=== PATIENT | male | born 1960 | race Caucasian/White ===

== ENCOUNTER 2016-07-26 14:43 | Observation (INO) | payer OTHER ==
[~2016-07-26] VITALS: Ht 185.4 cm; Wt 129.8 kg
[2016-07-26 17:12] LABS: HEMOGLOBIN 14.5 gm/dl (14.0-17.5); RED BLOOD COUNT 4.99 M/UL (4.20-5.50); WHITE BLOOD COUNT 8.3 K/UL (4.5-11.0)
[2016-07-26 17:49] LABS: BUN/CREATININE RATIO 13 (0-10)
[2016-07-27] MEDS ORDERED: ASPIRIN EC81 MG PO (00:53)
[2016-07-27] MEDS ORDERED: PLAVIX 75 MG TA75 MG PO (00:53)
[2016-07-27] MEDS ORDERED: VOLTAREN100 GM TOP (00:54)
[2016-07-27] MEDS ORDERED: FENOFIBRATE160 MG PO (00:54)
[2016-07-27] MEDS ORDERED: SYNTHROID150 MCG PO (00:55)
[2016-07-27] MEDS ORDERED: GLUCOTROL 10 MG10 MG PO (00:55)
[2016-07-27] MEDS ORDERED: METFORMIN HCL1000 MG PO (00:55)
[2016-07-27 04:55] LABS: HEMOGLOBIN 14.7 gm/dl (14.0-17.5); RED BLOOD COUNT 5.08 M/UL (4.20-5.50); WHITE BLOOD COUNT 9.9 K/UL (4.5-11.0)
[2016-07-27 05:16] LABS: BUN/CREATININE RATIO 13 (0-10)
[2016-07-27] MEDS ORDERED: METOPROLOL TART25 MG PO (19:41)
[2016-07-27] MEDS ORDERED: IMDUR ER TAB 3030 MG PO (19:42)
== END 2016-07-27 20:16 | disposition home or self-care (01) ==
LOC: ER1 14:43 → ZEROF 18:41 → MED SURG 4 18:41
PROVIDERS: Emergency Medicine; ADMIT Internal Medicine
DX: R07.9 Chest pain, unspecified (principal); I25.10 Atherosclerotic heart disease of native coronary artery without angina pectoris; E11.9 Type 2 diabetes mellitus without complications; I10 Essential (primary) hypertension; E78.5 Hyperlipidemia, unspecified; E66.01 Morbid (severe) obesity due to excess calories; Z79.82 Long term (current) use of aspirin; Z95.1 Presence of aortocoronary bypass graft; Z79.02 Long term (current) use of antithrombotics/antiplatelets; Z79.899 Other long term (current) drug therapy; Z87.891 Personal history of nicotine dependence
CPT/HCPCS: ECHO; 36415; 71020; 78452; 80048; 80053; 80061; 82550; 82553; 82962; 83690; 83874; 83880; 84484; 85025; 85027; 85610; 85730; 93005; 93017; 93306; 96372; 99285; A9502; G0378; J1650; J2785

== ENCOUNTER → 2020-03-20 | Outpatient (CLI) | payer OTHER ==
[~2020-03-20] MED LIST: ASPIRIN EC81 MG PO; CLARITIN10 M2 PO; CRESTOR40 MG PO; CYANOCOBAL1000 MCG/1 IM; ELIQUIS 2.5 MG2.5 MG PO; ELIQUIS5 MG PO; FENOFIBRATE150 MG PO; FENOFIBRATE160 MG PO; GLUCOTROL 10 MG10 MG PO; HYDROCODON-ACE1 EAC2 PO; IMDUR ER TAB 3030 MG PO; ISOSORBIDE MONO30 MG PO; LEVOTHYROXINE50 MC1 PO; LIPITOR40 MG PO; LOPRESSOR 25 MG25 MG PO; METFORMIN HCL1000 MG PO; METOPROLOL TART25 MG PO; NITROGLYCERIN0.4 MG SL; PLAVIX 75 MG TA75 MG PO; PRINIVIL20 MG PO; RANEXA500 MG PO; SYNTHROID175 MCG PO; VITAMIN D250000 UNIT PO; VOLTAREN100 GM TOP
== END ==
LOC: HEART 5 15:02
DX: I48.92 Unspecified atrial flutter (principal); I27.20 Pulmonary hypertension, unspecified; I70.0 Atherosclerosis of aorta; I08.1 Rheumatic disorders of both mitral and tricuspid valves
CPT/HCPCS: 93306

== ENCOUNTER → 2020-04-10 | Outpatient (CLI) | payer OTHER | LOC: HEART 5 08:12 | DX: I20.9 Angina pectoris, unspecified (principal); I25.89 Other forms of chronic ischemic heart disease | CPT/HCPCS: 78452; A9502; J2785 ==

== ENCOUNTER → 2020-04-18 | Outpatient (CLI) | payer OTHER ==
[2020-04-18 09:02] LABS: HEMOGLOBIN 16.4 gm/dl (14.0-17.5); RED BLOOD COUNT 5.72 M/UL (4.20-5.50); WHITE BLOOD COUNT 10.2 K/UL (4.5-11.0)
[2020-04-18 09:20] LABS: BUN/CREATININE RATIO 16 (0-10)
== END ==
LOC: LAB 08:34
PROVIDERS: Internal Medicine Cardiovascular Disease
DX: I48.92 Unspecified atrial flutter (principal); I20.9 Angina pectoris, unspecified; I10 Essential (primary) hypertension; R00.2 Palpitations; J90 Pleural effusion, not elsewhere classified
CPT/HCPCS: 36415; 71046; 80048; 85025

== ENCOUNTER 2020-05-02 07:24 | Outpatient (CLI) | payer OTHER ==
[~2020-05-02] VITALS: Ht 182.9 cm; Wt 104.3 kg
[~2020-05-02 07:24] MED LIST changes: -CRESTOR40 MG PO; -CYANOCOBAL1000 MCG/1 IM; -ELIQUIS5 MG PO; -HYDROCODON-ACE1 EAC2 PO; -ISOSORBIDE MONO30 MG PO; -LEVOTHYROXINE50 MC1 PO; -RANEXA500 MG PO
[2020-05-02 08:00] LABS: HEMOGLOBIN 14.8 gm/dl (14.0-17.5); RED BLOOD COUNT 5.46 M/UL (4.20-5.50); WHITE BLOOD COUNT 8.7 K/UL (4.5-11.0)
[2020-05-02 08:16] LABS: BUN/CREATININE RATIO 16 (0-10)
[2020-05-02] MEDS ORDERED: CRESTOR40 MG PO (09:13)
[2020-05-02] MEDS ORDERED: HYDROCODON-ACE1 EAC2 PO (09:14)
[2020-05-02] MEDS ORDERED: ISOSORBIDE MONO30 MG PO (09:14)
[2020-05-02] MEDS ORDERED: RANEXA500 MG PO (09:15)
[2020-05-02] MEDS ORDERED: LEVOTHYROXINE50 MC1 PO (09:16)
[2020-05-02] MEDS ORDERED: CYANOCOBAL1000 MCG/1 IM (09:17)
[2020-05-03] MEDS ORDERED: ELIQUIS5 MG PO (09:10)
== END 2020-05-03 11:15 | disposition home or self-care (01) ==
LOC: CATH 07:24 → PROG CARE 14:15 → CATH 05-03 11:15
PROVIDERS: Internal Medicine Cardiovascular Disease
DX: I25.10 Atherosclerotic heart disease of native coronary artery without angina pectoris (principal); I48.3 Typical atrial flutter; I25.2 Old myocardial infarction; I11.0 Hypertensive heart disease with heart failure; I50.20 Unspecified systolic (congestive) heart failure; E11.9 Type 2 diabetes mellitus without complications; I25.5 Ischemic cardiomyopathy; E78.5 Hyperlipidemia, unspecified; E03.9 Hypothyroidism, unspecified; K21.9 Gastro-esophageal reflux disease without esophagitis; M19.90 Unspecified osteoarthritis, unspecified site; Z95.5 Presence of coronary angioplasty implant and graft; Z87.891 Personal history of nicotine dependence; Z82.49 Family history of ischemic heart disease and other diseases of the circulatory system; Z88.5 Allergy status to narcotic agent; Z79.82 Long term (current) use of aspirin; Z79.01 Long term (current) use of anticoagulants; Z79.02 Long term (current) use of antithrombotics/antiplatelets; Z79.84 Long term (current) use of oral hypoglycemic drugs; Z79.899 Other long term (current) drug therapy
CPT/HCPCS: 36415; 80048; 82962; 85025; 93005; 93609; 93621; 99152; 99153; C1730; C1733; C1766; C1769; J1644; J2250; J3010; J7030; Q9967

== ENCOUNTER → 2020-10-03 | Outpatient (CLI) | payer OTHER ==
[~2020-10-03] MED LIST changes: +CRESTOR40 MG PO; +CYANOCOBAL1000 MCG/1 IM; +ELIQUIS5 MG PO; +HYDROCODON-ACE1 EAC2 PO; +ISOSORBIDE MONO30 MG PO; +LEVOTHYROXINE50 MC1 PO; +RANEXA500 MG PO
== END ==
LOC: US 15:00
DX: E03.9 Hypothyroidism, unspecified (principal); R10.9 Unspecified abdominal pain; R60.9 Edema, unspecified; E11.9 Type 2 diabetes mellitus without complications; I50.9 Heart failure, unspecified
CPT/HCPCS: 93970

== ENCOUNTER 2021-02-24 19:02 | Emergency (ER) | payer OTHER ==
[2021-02-24 22:08] LABS: HEMOGLOBIN 16.5 gm/dl (14.0-17.5); RED BLOOD COUNT 5.54 M/UL (4.20-5.50); WHITE BLOOD COUNT 7.5 K/UL (4.5-11.0)
[2021-02-24 22:34] LABS: BUN/CREATININE RATIO 14 (0-10)
== END 2021-02-25 02:48 | disposition home or self-care (01) ==
LOC: ER1 19:02
PROVIDERS: Physician Assistant
DX: J40 Bronchitis, not specified as acute or chronic (principal); I25.10 Atherosclerotic heart disease of native coronary artery without angina pectoris; E11.9 Type 2 diabetes mellitus without complications; Z20.822 Contact with and (suspected) exposure to COVID-19; I10 Essential (primary) hypertension; E78.5 Hyperlipidemia, unspecified
CPT/HCPCS: 71045; 80053; 82550; 82553; 83874; 83880; 84484; 85025; 99284; U0002

== ENCOUNTER → 2021-04-23 | Outpatient (CLI) | payer OTHER | LOC: KOH-I 11:33 | DX: M51.16 Intervertebral disc disorders with radiculopathy, lumbar region (principal); M47.816 Spondylosis without myelopathy or radiculopathy, lumbar region | CPT/HCPCS: 72100 ==

== ENCOUNTER 2021-09-30 17:50 | Emergency (ER) | payer OTHER ==
[~2021-09-30] VITALS: Ht 182.9 cm; Wt 117.9 kg
[2021-09-30] MEDS ORDERED: PROAIR HFA8.5 GM INH (19:33)
== END 2021-09-30 21:25 | disposition home or self-care (01) ==
LOC: ER1 17:50
DX: U07.1 COVID-19 (principal); J45.909 Unspecified asthma, uncomplicated; E11.9 Type 2 diabetes mellitus without complications; I10 Essential (primary) hypertension; Z87.891 Personal history of nicotine dependence
CPT/HCPCS: 0240U; 71045; 99285; M0222

== ENCOUNTER → 2021-10-23 | Outpatient (CLI) | payer OTHER ==
[~2021-10-23] MED LIST changes: +PROAIR HFA8.5 GM INH
== END ==
LOC: RT 12:19
DX: I25.10 Atherosclerotic heart disease of native coronary artery without angina pectoris (principal)
CPT/HCPCS: 93005

== ENCOUNTER → 2021-11-06 | Outpatient (CLI) | payer OTHER | LOC: RAD 12:40 | DX: M75.52 Bursitis of left shoulder (principal); E11.9 Type 2 diabetes mellitus without complications; M19.012 Primary osteoarthritis, left shoulder | CPT/HCPCS: 73030 ==